=== PATIENT | male | born 1980 | race Caucasian/White ===

== ENCOUNTER 2017-12-12 08:02 | Day surgery (SDC) | payer OTHER ==
[2017-12-11 09:54] VITALS: BMI 32.1
--- NOTE | 2017-12-12 09:21 | HP ---
History & Physical Update - History History: No Change - Physical Physical: No Change - Assessment Assessment: No Change - Plan Plan: No Change (scalp sebaceous cyst x 2 for removal)
[2017-12-12] MEDS ORDERED: oxyCODONE HCL 5 MG TABLET PO PRN (09:24)
[2017-12-12] MEDS ORDERED: ACETAMINOPHEN 500 MG TABLET (FP) PO PRN (09:24)
[2017-12-12] MEDS ORDERED: ONDANSETRON 4 MG/2 ML VIAL IVPUSH PRN (09:24)
[2017-12-12] MEDS ORDERED: LACTATED RINGERS SOLUTION 1,000 ML IV SCH (09:30)
[2017-12-12] MEDS ORDERED: LIDOCAINE HCL/PF 1% SDV 5ML VIAL ONE (09:34)
[2017-12-12] MEDS ORDERED: MIDAZOLAM HCL 2 MG/2 ML SINGLE DOSE VIAL ONE ×2 (09:35→09:55)
[2017-12-12] MEDS ORDERED: PROPOFOL 20 ML ONE ×2 (09:35)
[2017-12-12] MEDS ORDERED: LIDOCAINE HCL/PF 2% SDV 5ML VIAL ONE (09:35)
[2017-12-12] MEDS ORDERED: ceFAZolin SODIUM 1 GM VIAL ONE (09:56)
[2017-12-12] MEDS ORDERED: ceFAZolin SODIUM 1 GM VIAL IVPB ONE (10:00)
[2017-12-12] MEDS ORDERED: LIDOCAINE HCL 1%, 10 MG/ML (20ML VIAL) NR ONE ×2 (10:05)
[2017-12-12] MEDS ORDERED: BACITRACIN 15 GM TUBE TOPICAL OINTMENT ONE (10:16)
[2017-12-12] MEDS ORDERED: KETOROLAC TROMETHAMINE 30 MG/1 ML VIAL ONE ×2 (10:23→10:53)
[2017-12-12] MEDS ORDERED: BACITRACIN 15 GM TUBE TOPICAL OINTMENT TP ONE (10:27)
--- NOTE | 2017-12-12 10:54 | OP ---
Operative Note - Note: Operative Date: 12/12/17 Pre-Operative Diagnosis: scalp cysts Operation: excision scalp cysts Findings: 2 scalp cysts; 3.0 cm. and 2.0 cm. Post-Operative Diagnosis: Same as Pre-op Surgeon: Rosales Burrell Logistics Project Manager: Sravanthi Hobbs Anesthesia: MAC Specimens Removed: scalp cysts Estimated Blood Loss (mls): 5
[2017-12-12 11:28] VITALS: TEMP 98
[2017-12-12 12:55] VITALS: BP 132/70; PULSE 54
--- NOTE | 2017-12-16 10:40 | PATH ---
Surgical Pathology Report Patient Name: KATHARINE WHITAKER [facility]. Rec. #: [id number] /Age/Gender: 1980 (Age: 37) / M Account: [id number] Location: [facility] SURGICAL Taken: 12/12/2017 Received: 12/12/2017 Reported: 12/16/2017 Physicians: Rosales Burrell MD Specimen(s) Received A: SEBACEOUS CYST #1 B: SEBACEOUS CYST #2 Clinical History Multiple pilar cysts Final Diagnosis A. SCALP, 'SEBACEOUS CYST' #1, EXCISION: TRICHILEMMAL (PILAR) CYST. B. SCALP, 'SEBACEOUS CYST' #2, EXCISION: TRICHILEMMAL (PILAR) CYST. Electronically Signed Betzaida Sarah M.D. Gross Description A. Received in formalin labeled "sebaceous cyst #1," is a 2.5 x 2.3 x 1.3 cm bell, intact cyst. Sectioning reveals bell sebaceous material within the lumen. A communications representative section is submitted in one cassette. B. Received in formalin labeled "sebaceous cyst #2," is a 1.3 x 1.3 x 0.8 cm bell, intact cyst. The cyst lumen contains bell sebaceous material. A communications representative section is submitted in one cassette. 12/12/201712/12/2017
--- NOTE | 2017-12-17 09:10 | OP ---
DATE OF OPERATION: 12/12/2017 PREOPERATIVE DIAGNOSIS: Scalp cysts. POSTOPERATIVE DIAGNOSIS: Scalp cysts. PROCEDURE: Excision of scalp cysts. SURGEON: Rosales Burrell MD ANESTHESIA: Local with IV sedation. OPERATIVE FINDINGS: There were 2 scalp cysts measuring 3 cm and 2 cm in maximum dimensions respectively. The rest of the findings were unremarkable. DESCRIPTION OF PROCEDURE: The patient was placed on the operating table in the prone position, and the area over both scalp cysts was prepped with ChloraPrep and draped in sterile fashion. A time-out was taken, and incision mapped out over the first scalp cyst where the area was infiltrated with 1% Xylocaine and 0.5% Marcaine in equal concentration. The incision was made with the scalpel and taken down through skin and subcutaneous tissue, and the cyst identified and bluntly dissected from the surrounding structures. The pedicle of the cyst was clamped, and the cyst excised and sent for pathological examination, and the pedicle ligated with 3-0 Vicryl suture. Hemostasis was secured with electrocautery, and then, the incision closed with continuous 3-0 Vicryl locked horizontal suture. The same exact procedure was carried out on the remaining cyst, and at the completion of excision of the 2nd cyst, both wounds were dressed with Bacitracin ointment, and the patient transferred to the post-anesthesia care unit in stable condition, awake and alert. ESTIMATED BLOOD LOSS: 5 mL. REPLACEMENTS: Crystalloid. DRAINS: None. SPECIMENS: Scalp cysts to Pathology. I, Rosales Burrell, was physically present in the operating room from the time the patient was placed on the operating table until he was transferred to the post-anesthesia care unit in my accompaniment. MD IGNACIO Carmen/[id number]
== END 2017-12-12 12:20 | disposition home or self-care (01) ==
LOC: JASU-SURG 08:02
PROVIDERS: ATTEND Surgery
PROC: 0JB00ZX Excision of Scalp Subcutaneous Tissue and Fascia, Open Approach, Diagnostic (ICD-10-PCS; 2017-12-12)
PROC: 0JB00ZX Excision of Scalp Subcutaneous Tissue and Fascia, Open Approach, Diagnostic (ICD-10-PCS; principal; 2017-12-12 10:00)
DX: L72.11 Pilar cyst (principal)
CPT/HCPCS: 88304-TC; 94760

== ENCOUNTER 2021-05-25 04:24 | Day surgery (SDC) | payer OTHER ==
[2021-05-24 10:12] VITALS: BMI 36.2
[2021-05-25] MEDS ORDERED: LIDOCAINE HCL/PF 1% SDV 5ML VIAL ONE (07:06)
[2021-05-25] MEDS ORDERED: BUPIVACAINE HCL/PF 0.75% 10 ML VIAL ONE (07:06)
[2021-05-25] MEDS ORDERED: LIDOCAINE HCL/PF 2% SDV 5ML VIAL ONE (10:07)
[2021-05-25] MEDS ORDERED: PROPOFOL 20 ML ONE ×2 (10:07)
[2021-05-25] MEDS ORDERED: MIDAZOLAM HCL 2 MG/2 ML SINGLE DOSE VIAL ONE (10:07)
[2021-05-25] MEDS ORDERED: IOHEXOL 180 MG/1 ML ML IJ ONE (10:21)
[2021-05-25] MEDS ORDERED: LIDOCAINE HCL 1% PRESERVATIVE FREE - 30ML VIAL IJ ONE (10:23)
[2021-05-25] MEDS ORDERED: BUPIVACAINE HCL/PF 0.75% 10 ML VIAL NR ONE (10:23)
[2021-05-25 12:13] VITALS: TEMP 97.7
[2021-05-25 12:37] VITALS: BP 126/70; PULSE 70
== END 2021-05-25 11:30 | disposition home or self-care (01) ==
LOC: JASU-SURG 04:24
PROVIDERS: ATTEND Pain Medicine Pain Medicine
PROC: BR16YZZ Fluoroscopy of Lumbar Facet Joint(s) using Other Contrast (ICD-10-PCS; 2021-05-25)
PROC: 3E0T3BZ Introduction of Anesthetic Agent into Peripheral Nerves and Plexi, Percutaneous Approach (ICD-10-PCS; principal; 2021-05-25 10:30)
DX: M47.816 Spondylosis without myelopathy or radiculopathy, lumbar region (principal)
CPT/HCPCS: 76000-TC-FY

== ENCOUNTER 2021-06-19 04:30 | Day surgery (SDC) | payer OTHER ==
[2021-06-18 12:57] VITALS: BMI 36.2
[2021-06-19] MEDS ORDERED: BUPIVACAINE HCL/PF 0.75% 10 ML VIAL ONE (07:29)
[2021-06-19] MEDS ORDERED: LIDOCAINE HCL/PF 1% SDV 5ML VIAL ONE (07:29)
[2021-06-19] MEDS ORDERED: PROPOFOL 20 ML ONE (09:32)
[2021-06-19] MEDS ORDERED: MIDAZOLAM HCL 2 MG/2 ML SINGLE DOSE VIAL ONE (09:32)
[2021-06-19] MEDS ORDERED: LIDOCAINE HCL 1% PRESERVATIVE FREE - 30ML VIAL IJ ONE (09:49)
[2021-06-19] MEDS ORDERED: BUPIVACAINE HCL/PF 0.75% 10 ML VIAL NR ONE ×2 (09:50)
[2021-06-19] MEDS ORDERED: IOHEXOL 180 MG/1 ML ML IJ ONE ×2 (09:50)
[2021-06-19 12:20] VITALS: BP 129/70; PULSE 64; TEMP 97.8
== END 2021-06-19 11:30 | disposition home or self-care (01) ==
LOC: JASU-SURG 04:30
PROVIDERS: ATTEND Pain Medicine Pain Medicine
PROC: BR16YZZ Fluoroscopy of Lumbar Facet Joint(s) using Other Contrast (ICD-10-PCS; 2021-06-19)
PROC: 3E0T3BZ Introduction of Anesthetic Agent into Peripheral Nerves and Plexi, Percutaneous Approach (ICD-10-PCS; principal; 2021-06-19 09:30)
DX: M47.816 Spondylosis without myelopathy or radiculopathy, lumbar region (principal)
CPT/HCPCS: 76000-TC-FY

== ENCOUNTER 2021-07-17 04:47 | Day surgery (SDC) | payer OTHER ==
[2021-07-13 15:01] VITALS: BMI 36.2
[2021-07-17] MEDS ORDERED: LIDOCAINE HCL/PF 1% SDV 5ML VIAL ONE ×2 (07:19→10:35)
[2021-07-17] MEDS ORDERED: DEXAMETHASONE SOD PHOSPHATE 10 MG/1 ML VIAL ONE (07:19)
[2021-07-17] MEDS ORDERED: BUPIVACAINE HCL/PF 0.75% 10 ML VIAL ONE (07:19)
[2021-07-17] MEDS ORDERED: MIDAZOLAM HCL 2 MG/2 ML SINGLE DOSE VIAL ONE ×2 (10:29→10:32)
[2021-07-17] MEDS ORDERED: LIDOCAINE 1% P/F 10 MG/ML VIAL INF ONE (10:33)
[2021-07-17] MEDS ORDERED: LIDOCAINE HCL/PF 2% SDV 5ML VIAL INF ONE (10:34)
[2021-07-17] MEDS ORDERED: BUPIVACAINE HCL/PF 0.75% 10 ML VIAL NR ONE (10:34)
[2021-07-17] MEDS ORDERED: IOHEXOL 180 MG/1 ML ML IJ ONE (10:34)
[2021-07-17] MEDS ORDERED: DEXAMETHASONE SOD PHOSPHATE 10 MG/1 ML VIAL IVPUSH ONE (10:35)
[2021-07-17 11:32] VITALS: PULSE 82
[2021-07-17 11:53] VITALS: BP 156/81; TEMP 96.4
== END 2021-07-17 12:20 | disposition home or self-care (01) ==
LOC: JASU-SURG 04:47
PROVIDERS: ATTEND Pain Medicine Pain Medicine
PROC: 3E0T3TZ Introduction of Destructive Agent into Peripheral Nerves and Plexi, Percutaneous Approach (ICD-10-PCS; principal; 2021-07-17 10:00)
PROC: BR16YZZ Fluoroscopy of Lumbar Facet Joint(s) using Other Contrast (ICD-10-PCS; 2021-07-17 10:00)
DX: M47.816 Spondylosis without myelopathy or radiculopathy, lumbar region (principal)
CPT/HCPCS: 76000-TC-FY; J1100

== ENCOUNTER 2021-11-29 07:46 | Emergency (ER) | payer OTHER ==
[2021-11-29 08:20] VITALS: BP 141/91; PULSE 72; RESP 18; TEMP 97.8; BMI 36.2
[2021-11-29] MEDS ORDERED: IBUPROFEN 600 MG TABLET (FP) PO ONE ×2 (09:40→09:56)
== END 2021-11-29 10:36 | disposition home or self-care (01) ==
LOC: JER 07:46
DX: S93.492A Sprain of other ligament of left ankle, initial encounter (principal); X50.0XXA Overexertion from strenuous movement or load, initial encounter
CPT/HCPCS: 73610-TC-LT-FY; 73630-TC-LT; 99283-25

== ENCOUNTER 2022-03-12 04:56 | Day surgery (SDC) | payer OTHER ==
[2022-03-11 17:40] VITALS: BMI 36.9
[2022-03-12] MEDS ORDERED: LIDOCAINE HCL/PF 1% SDV 5ML VIAL ONE (07:23)
[2022-03-12] MEDS ORDERED: BUPIVACAINE HCL/PF 0.75% 10 ML VIAL ONE (07:23)
[2022-03-12] MEDS ORDERED: DEXAMETHASONE SOD PHOSPHATE 10 MG/1 ML VIAL ONE (07:23)
[2022-03-12 11:44] VITALS: RESP 18
[2022-03-12] MEDS ORDERED: DEXAMETHASONE SOD PHOSPHATE 10 MG/1 ML VIAL IVPUSH ONE ×2 (12:51)
[2022-03-12] MEDS ORDERED: LIDOCAINE 1% P/F 10 MG/ML VIAL PNB ONE (12:51)
[2022-03-12] MEDS ORDERED: LIDOCAINE HCL 2% (50ML VIAL) NR ONE ×2 (12:51)
[2022-03-12] MEDS ORDERED: BUPIVACAINE HCL/PF 0.75% 10 ML VIAL NR ONE (12:51)
[2022-03-12 13:43] VITALS: PULSE 62
[2022-03-12 13:46] VITALS: BP 123/52; TEMP 98.1
== END 2022-03-12 13:52 | disposition home or self-care (01) ==
LOC: JASU-SURG 04:56
PROVIDERS: ATTEND Pain Medicine Pain Medicine
PROC: BR16YZZ Fluoroscopy of Lumbar Facet Joint(s) using Other Contrast (ICD-10-PCS; 2022-03-12)
PROC: 3E0T3TZ Introduction of Destructive Agent into Peripheral Nerves and Plexi, Percutaneous Approach (ICD-10-PCS; principal; 2022-03-12 13:00)
DX: M47.816 Spondylosis without myelopathy or radiculopathy, lumbar region (principal)
CPT/HCPCS: 76000-TC-FY; J1100

== ENCOUNTER 2023-02-11 05:05 | Day surgery (SDC) | payer OTHER ==
[2023-02-05 14:41] VITALS: BMI 36.2
[~2023-02-11 05:05] MED LIST: ACETAMINOPHEN 500 MG TABLET (FP) PO PRN
[2023-02-11] MEDS ORDERED: BUPIVACAINE HCL/PF 0.75% 10 ML VIAL ONE (07:17)
[2023-02-11] MEDS ORDERED: LIDOCAINE HCL/PF 1% SDV 5ML VIAL ONE (07:17)
[2023-02-11] MEDS ORDERED: LIDOCAINE HCL/PF 2% SDV 5ML VIAL ONE (07:17)
[2023-02-11] MEDS ORDERED: DEXAMETHASONE SOD PHOSPHATE 10 MG/1 ML VIAL ONE (07:18)
[2023-02-11] MEDS ORDERED: LIDOCAINE HCL 2% (50ML VIAL) NR ONE (10:12)
[2023-02-11] MEDS ORDERED: LIDOCAINE HCL 1%, 10 MG/ML (20ML VIAL) NR ONE (10:12)
[2023-02-11] MEDS ORDERED: BUPIVACAINE HCL/PF 0.75% 10 ML VIAL NR ONE (10:12)
[2023-02-11] MEDS ORDERED: DEXAMETHASONE SOD PHOSPHATE 10 MG/1 ML VIAL IM ONE (10:12)
[2023-02-11 11:09] VITALS: BP 140/77; PULSE 62; RESP 16; TEMP 96.2
[2023-02-11] MEDS ORDERED: ACETAMINOPHEN 500 MG TABLET (FP) PO PRN (14:48)
== END 2023-02-11 11:05 | disposition home or self-care (01) ==
LOC: JASU-SURG 05:05
PROVIDERS: ATTEND Pain Medicine Pain Medicine
PROC: 01553ZZ Destruction of Median Nerve, Percutaneous Approach (ICD-10-PCS; principal; 2023-02-11 09:30)
DX: M47.816 Spondylosis without myelopathy or radiculopathy, lumbar region (principal)
CPT/HCPCS: 76000-TC-FY; J1100

== ENCOUNTER 2023-02-18 06:30 | Emergency (ER) | payer OTHER ==
[2023-02-18 06:45] VITALS: BP 151/85; PULSE 69; RESP 18; TEMP 98.3; BMI 34.8
== END 2023-02-18 07:59 | disposition home or self-care (01) ==
LOC: JER 06:30
DX: H92.02 Otalgia, left ear (principal); H66.92 Otitis media, unspecified, left ear
CPT/HCPCS: 99283-25

== ENCOUNTER 2023-09-16 09:52 | Observation (INO) | payer OTHER ==
[2023-09-16 10:02] VITALS: BMI 34.8
[2023-09-16] MEDS ORDERED: ACETAMINOPHEN INJECTION 100 ML IVPB ONE (10:46)
[2023-09-16] MEDS: ACETAMINOPHEN 1000 MG/100 ML BAG IVPB ONE ×3 (10:50→18:11)
[2023-09-16 10:57] LABS: BASO % 0.9 % (0-2.0); EOS % 1.8 % (0-4.5); HEMATOCRIT 43.9 % (35.4-49); HEMOGLOBIN 15.4 GM/dL (11.7-16.9); LYMPH % 12.7 % (8-40); MCH 30.3 pg (25.7-33.7); MEAN CELL VOLUME 86.6 fl (80-96); MEAN PLT VOLUME 6.9 fl (7.5-11.1); MONO % 8.8 % (3.8-10.2); NEUT % 75.8 % (42.8-82.8); PLATELET COUNT 346 10^3/uL (134-434); RBC 5.07 M/mm3 (4.00-5.60); RDW 13.3 % (11.9-15.9); WHITE BLOOD COUNT 14.1 K/mm3 (4.0-10.0)
[2023-09-16 11:04] LABS: INR 1.09 (0.83-1.09); PROTHROMBIN TIME (PATIENT) 12.5 SEC (9.7-13.0)
[2023-09-16 11:07] LABS: ACTIVATED PTT 30.8 SECONDS (25.2-36.5)
[2023-09-16] MEDS: LACTATED RINGERS SOLUTION 1,000 ML/1,000 ML INFUS.BAG IV SCH ×2 (11:20→18:36)
[2023-09-16 11:35] LABS: POTASSIUM 4.1 mmol/L (3.5-5.1)
[2023-09-16 11:38] LABS: ALBUMIN 3.7 g/dl (3.4-5.0); BLOOD UREA NITROGEN 9.9 mg/dL (7-18); CALCIUM 9.4 mg/dL (8.5-10.1)
[2023-09-16 11:41] LABS: CREATININE 1.1 mg/dL (0.55-1.3)
[2023-09-16 11:43] LABS: BILIRUBIN,TOTAL 0.6 mg/dL (0.2-1); TOT PROT 7.1 g/dl (6.4-8.2)
[2023-09-16] MEDS ORDERED: PIPERACILLIN/TAZOB 4.5 GM 4.5 GM/100 ML BAG IVPB ONE (12:36)
[2023-09-16] MEDS: PIPERACILLIN/TAZOB 4.5 GM 4.5 GM in DEXTROSE 5%-WATER 100 ML IVPB ONE (12:45)
[2023-09-16] MEDS ORDERED: NICOTINE POLACRILEX 4 MG LOZENGE BC PRN (16:05)
[2023-09-16] MEDS ORDERED: GABAPENTIN 300 MG CAPSULE PO PRN ×2 (16:38→20:49)
[2023-09-16 17:35] VITALS: RESP 18
[2023-09-16] MEDS: ZOLPIDEM TARTRATE 5 MG TABLET PO PRN (21:47)
[2023-09-17 09:00] LABS: BASO % 0.6 % (0-2.0); EOS % 3.2 % (0-4.5); HEMATOCRIT 39.8 % (35.4-49); HEMOGLOBIN 13.6 GM/dL (11.7-16.9); LYMPH % 13.4 % (8-40); MCH 29.9 pg (25.7-33.7); MCHC 34.2 g/dl (32.0-35.9); MEAN CELL VOLUME 87.5 fl (80-96); MEAN PLT VOLUME 7.1 fl (7.5-11.1); MONO % 8.6 % (3.8-10.2); NEUT % 74.2 % (42.8-82.8); PLATELET COUNT 278 10^3/uL (134-434); RBC 4.55 M/mm3 (4.00-5.60); WHITE BLOOD COUNT 11.5 K/mm3 (4.0-10.0)
[2023-09-17] MEDS: SERTRALINE HCL 50 MG TABLET (FP) PO SCH (09:17)
[2023-09-17] MEDS: ENOXAPARIN NA (PORCINE) 40 MG/0.4 ML DISP.SYRIN SQ SCH (09:17)
[2023-09-17 09:21] LABS: POTASSIUM 4.2 mmol/L (3.5-5.1)
[2023-09-17 09:29] LABS: ALBUMIN 3.4 g/dl (3.4-5.0); CALCIUM 9.3 mg/dL (8.5-10.1)
[2023-09-17 09:32] LABS: CREATININE 0.9 mg/dL (0.55-1.3); PHOSPHOROUS 3.1 mg/dL (2.5-4.9)
[2023-09-17 09:34] LABS: BILIRUBIN,TOTAL 0.6 mg/dL (0.2-1); TOT PROT 6.3 g/dl (6.4-8.2)
[2023-09-17] MEDS: CEFTRIAXONE 1 GM in DEXTROSE 5%-WATER - 50 ML IVPB SCH (11:10)
[2023-09-17] MEDS ORDERED: GABAPENTIN 300 MG CAPSULE PO PRN (12:41)
[2023-09-17] MEDS: VANCOMYCIN ORAL SOLUTION 125 MG/2.5 ML PO SCH (12:43)
[2023-09-17] MEDS: SODIUM CHLORIDE 1,000 ML IV SCH (18:03)
[2023-09-18 08:39] LABS: HEMATOCRIT 37.3 % (35.4-49); MCH 30.4 pg (25.7-33.7); MEAN PLT VOLUME 7.3 fl (7.5-11.1); PLATELET COUNT 281 10^3/uL (134-434); RBC 4.28 M/mm3 (4.00-5.60); RDW 12.8 % (11.9-15.9); WHITE BLOOD COUNT 8.3 K/mm3 (4.0-10.0)
[2023-09-18 08:48] LABS: POTASSIUM 4.2 mmol/L (3.5-5.1)
[2023-09-18 08:50] LABS: BLOOD UREA NITROGEN 6.1 mg/dL (7-18); CALCIUM 8.8 mg/dL (8.5-10.1)
[2023-09-18 08:54] LABS: CREATININE 0.8 mg/dL (0.55-1.3)
[2023-09-18] MEDS: SIMETHICONE 80 MG TAB.CHEW (FP) PO PRN (17:37)
[2023-09-18 20:42] VITALS: TEMP 97.6
[2023-09-19 05:13] VITALS: BP 139/84; PULSE 66
[2023-09-19 09:07] LABS: HEMATOCRIT 41.1 % (35.4-49); HEMOGLOBIN 14.3 GM/dL (11.7-16.9); MCH 30.1 pg (25.7-33.7); MCHC 34.7 g/dl (32.0-35.9); MEAN CELL VOLUME 86.7 fl (80-96); PLATELET COUNT 335 10^3/uL (134-434); RBC 4.74 M/mm3 (4.00-5.60); RDW 12.6 % (11.9-15.9); WHITE BLOOD COUNT 7.2 K/mm3 (4.0-10.0)
[2023-09-19 09:14] LABS: POTASSIUM 4.4 mmol/L (3.5-5.1)
[2023-09-19 09:16] LABS: BLOOD UREA NITROGEN 8.4 mg/dL (7-18); CALCIUM 9.5 mg/dL (8.5-10.1)
[2023-09-19 09:20] LABS: CREATININE 0.9 mg/dL (0.55-1.3)
== END 2023-09-19 16:43 | disposition home or self-care (01) ==
LOC: JER 09:52 → JERBED 12:41 → J6S 14:13
PROVIDERS: ADMIT Internal Medicine; ATTEND Internal Medicine
PROC: 3E033NZ Introduction of Analgesics, Hypnotics, Sedatives into Peripheral Vein, Percutaneous Approach (ICD-10-PCS; principal; 2023-09-16)
PROC: 3E023GC Introduction of Other Therapeutic Substance into Muscle, Percutaneous Approach (ICD-10-PCS; 2023-09-16)
PROC: 3E03329 Introduction of Other Anti-infective into Peripheral Vein, Percutaneous Approach (ICD-10-PCS; 2023-09-16)
PROC: 3E0337Z Introduction of Electrolytic and Water Balance Substance into Peripheral Vein, Percutaneous Approach (ICD-10-PCS; 2023-09-16)
DX: A04.72 Enterocolitis due to Clostridium difficile, not specified as recurrent (principal); D72.829 Elevated white blood cell count, unspecified; F19.21 Other psychoactive substance dependence, in remission; R10.31 Right lower quadrant pain; R19.7 Diarrhea, unspecified; F41.8 Other specified anxiety disorders; F17.210 Nicotine dependence, cigarettes, uncomplicated
CPT/HCPCS: 36415; 74177-TC; 80048; 80053; 82962; 83690; 83735; 84100; 85025; 85027; 85610; 85730; 86850; 86900; 86901; 87324; 87449; 87493; 93005; 93010; 96361; 96365; 96367; 96372; 96375; 96376; 99285-25; G0378; J0131; Q9967

== ENCOUNTER 2024-01-26 13:55 | Emergency (ER) | payer OTHER ==
[2024-01-26 14:01] VITALS: BP 135/98; PULSE 88; RESP 18; TEMP 97.7; BMI 35.5
[2024-01-26 16:35] LABS: PH,URINE 5.5 (5.0-8.0); URINE APPEARANCE CLEAR; URINE BILIRUBIN NEGATIVE (NEGATIVE); URINE COLOR YELLOW; URINE GLUCOSE (UA) NEGATIVE (NEGATIVE); URINE KETONE TRACE (NEGATIVE); URINE LEUK ESTERASE NEGATIVE (NEGATIVE); URINE NITRITE NEGATIVE (NEGATIVE); URINE PROTEIN NEGATIVE (NEGATIVE); URINE UROBILINOGEN 0.2 mg/dL (0.2-1.0)
[2024-01-26 17:22] LABS: HIV INTERPRETATION NEGATIVE (NEGATIVE)
== END 2024-01-26 17:49 | disposition home or self-care (01) ==
LOC: JER 13:55
DX: R82.998 Other abnormal findings in urine (principal)
CPT/HCPCS: 36415; 81003; 82962; 86803; 87086; 87389; 87491; 87591; 99283-25